=== PATIENT | male | born 1935 | race Hispanic/Latino ===

== ENCOUNTER 2019-12-01 10:56 | Outpatient (CLI) | payer MEDICARE ==
--- NOTE | 2019-12-01 13:23 | NM ---
Radionucleotide HIDA scan HISTORY: Gangrenous cholecystitis. Evaluate for biliary leak. FINDINGS: Early images show physiologic uptake of radiotracer throughout the hepatic parenchyma. Upta ke evident within the small bowel at 18 minutes. On the two-hour delayed image, uptake immediately lateral to the descending duodenum may be within the gallbladder remnant. No abnormal localization of radiotracer. IMPRESSION : No evidence of biliary leak.
== END 2019-12-01 10:57 | disposition home or self-care (01) ==
LOC: NM 10:56
PROVIDERS: ATTEND Surgery
DX: K83.8 Other specified diseases of biliary tract (principal); R10.11 Right upper quadrant pain
CPT/HCPCS: 78226

== ENCOUNTER 2020-01-03 13:38 | Emergency (ER) | payer MEDICARE ==
--- NOTE | 2020-01-03 15:27 | RAD ---
Chest one view Abdomen 2 views HISTORY: Inadvertent removal of PEG. FINDINGS: Cardiac silhouette is magnified by projection. Pulmonary vasculature is unremarkable. Media stinum is midline with postoperative changes. Retrocardiac density may represent a sliding hiatal hernia. No mass was present on recent CT. No lobar consolidation or evidence of pneumothorax. Gas and stool overlying the colon and rectum. No differential air-fluid levels or evidence of free poole bdiaphragmatic gas. Metallic clips overlie the upper abdomen. Supine AP view best demonstrates retention balloon associated with the left upper quadrant peg to ove rlie the gastric air bubble. Deformity of the pubic symphysis may represent an old injury. IMPRESSION : PEG is at the expected radiographic location. Nonspecific bowel gas pattern.
== END 2020-01-03 17:32 | disposition home or self-care (01) ==
LOC: ERS 13:38
DX: K94.23 Gastrostomy malfunction (principal); E11.9 Type 2 diabetes mellitus without complications; I25.2 Old myocardial infarction; I25.10 Atherosclerotic heart disease of native coronary artery without angina pectoris; E78.5 Hyperlipidemia, unspecified; I10 Essential (primary) hypertension; F03.90 Unspecified dementia, unspecified severity, without behavioral disturbance, psychotic disturbance, mood disturbance, and anxiety; Z86.73 Personal history of transient ischemic attack (TIA), and cerebral infarction without residual deficits; Z79.899 Other long term (current) drug therapy
CPT/HCPCS: 74022